=== PATIENT | male | born 1990 | race Caucasian/White ===

== ENCOUNTER 2021-10-31 09:06 | Emergency (ER) | payer OTHER ==
[2021-10-31 09:18] VITALS: BP 118/82
--- NOTE | 2021-10-31 10:00 | ED Physician Documentation ---
PD HPI SKIN - Stated complaint Stated Complaint: SKIN IRRITATION - Chief complaint Chief Complaint: General - History obtained from History obtained from: Patient - History of Present Illness Timing - onset: How many days ago (few) Timing - duration: Days (few) Timing - details: Gradual onset, Still present (has had onset of itchy, scaly patch of rash right forearm for several days, and now with several rounded, tender, raised lumps under skin, one of which drained some pus last night.) Location: RUE (forearm) Quality / character: Itchy, Burning, Swelling, Draining (one small area) Contributing factors: No: Exposed to medication, Exposed to food Similar symptoms before: Diagnosis (had thickened scaly rash on MCPs and fingers months ago and treated as eczema/psoriasis. Did have it on forearms as well. That part had improved with steroid topical. Knuckles not fully cleared. Now with forearm rash back. No noted trigger/irritant.) Review of Systems Constitutional: denies: Fever, Chills Skin: reports: Rash Neurologic: denies: Focal weakness, Numbness PD PAST MEDICAL HISTORY - Past Medical History Derm: Eczema - Present Medications Home Medications: Ambulatory Orders Medication Instructions Recorded Confirmed Mupirocin 2% Oint [Bactroban 2% 1 applic TOP TID #15 gm 10/31/21 Oint] Sulfamethox/Trimeth 800/160 1 each PO BID #14 tablet 10/31/21 [Bactrim Ds 800/160] Triamcinolone 0.1% Oint 1 applic TOP BID 15 Days #80 gm 10/31/21 Triamcinolone 0.1% Oint [Kenalog 1 applic TOP BID #15 gm 10/31/21 0.1% Oint] dexAMETHasone [Decadron] 4 mg PO DAILY #7 tablet 10/31/21 - Allergies Allergies/Adverse Reactions: Allergies Allergy/AdvReac Type Severity Reaction Status Date / Time No Known Drug Allergies Allergy Verified 10/31/21 09:18 PD ED PE NORMAL - Vitals Vital signs reviewed: Yes - General General: Alert and oriented X 3, No acute distress, Well developed/nourished - Derm Derm: Normal color, Warm and dry, Other (right volar forearm with raised, demarcated, scaly, thickened patch of rash c/w eczema/psoriasis. On lower area of it are 3 small rounded red areas with tenderness c/w early abscesses. No fluctuance felt. Largest is only about 1 cm. ) Results - Vitals Vitals: Oxygen O2 Source Room air PD MEDICAL DECISION MAKING - ED course Complexity details: considered differential (psoriatic rash with secondary infection. ), d/w patient Departure - Departure Disposition: 01 Home, Self Care Clinical Impression: Psoriasis, Abscess of forearm, right Condition: Stable Record reviewed to determine appropriate education?: Yes Instructions: ED Staph Infec Abx Tx Only, ED Psoriasis Follow-Up: ORION CARDOZO MD [Primary Care Provider] - Prescriptions: Sulfamethox/Trimeth 800/160 [Bactrim Ds 800/160] 1 each PO BID #14 tablet Mupirocin 2% Oint [Bactroban 2% Oint] 1 applic TOP TID #15 gm dexAMETHasone [Decadron] 4 mg PO DAILY #7 tablet Triamcinolone 0.1% Oint [Kenalog 0.1% Oint] 1 applic TOP BID #15 gm Triamcinolone 0.1% Oint 1 applic TOP BID 15 Days #80 gm Comments: Cleanse the area with water and gentle soap once or twice daily and then apply some mupirocin antibiotic ointment to the abscess/infection appearing areas. You can use triamcinolone steroid to the psoriatic rash as well. Use skin lotion twice daily as well over those. Also orally take dexamethasone steroid daily for the next week. Hopefully this will improve the psoriatic rash component. It does appear to be secondary bacterial infection and several locations. Bactrim antibiotic twice daily for that portion of it and see if those resolve. Return or follow-up with the clinic if the infection areas get larger as they may potentially need better drainage. Follow-up with dermatology if the rash overall has not improved or recurs over the near future. I transmitted your prescriptions to [facility] in [place]. Discharge Date/Time: 10/31/21 11:11
[2021-10-31] MEDS ORDERED: MUPIROCIN 2% OINT 1 GM TOP STA (10:29)
[2021-10-31] MEDS ORDERED: SULFAMETH/TRIMETH DS 800/160 MG TABLET PO STA (10:29)
[2021-10-31] MEDS ORDERED: CHERRY SYRUP 10 ML UDC PO ONE (10:29)
[2021-10-31] MEDS ORDERED: DEXAMETHASONE 10 MG/ML VIAL PO STA (10:29)
== END 2021-10-31 11:11 | disposition home or self-care (01) ==
LOC: ED 09:06
DX: L40.9 Psoriasis, unspecified (principal); L02.413 Cutaneous abscess of right upper limb
CPT/HCPCS: 99283; 99284; A9270